=== PATIENT | female | born 1995 | race Caucasian/White ===

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

== ENCOUNTER 2017-06-06 22:56 | Emergency (ER) | payer OTHER ==
[~2017-06-06] VITALS: Ht 162.6 cm; Wt 84.4 kg
[2017-06-07 01:07] VITALS: BP 134/80
== END 2017-06-07 01:07 | disposition home or self-care (01) ==
LOC: ED 22:56
DX: S93.402A Sprain of unspecified ligament of left ankle, initial encounter (principal); X58.XXXA Exposure to other specified factors, initial encounter; Y93.89 Activity, other specified; Y92.89 Other specified places as the place of occurrence of the external cause; Y99.8 Other external cause status

== ENCOUNTER 2017-08-30 22:36 | Emergency (ER) | payer OTHER ==
[~2017-08-30] VITALS: Ht 162.6 cm; Wt 88.0 kg
[2017-08-30 22:42] VITALS: Ht 162.6 cm; Wt 88.0 kg
[2017-08-31 01:27] LABS: microscopic required? YES; urine erythrocyte NEGATIVE (NEGATIVE)
[2017-08-31 03:54] VITALS: BP 114/74
== END 2017-08-31 03:54 | disposition home or self-care (01) ==
LOC: ED 22:36
PROVIDERS: Emergency Medicine
DX: N39.0 Urinary tract infection, site not specified (principal)
CPT/HCPCS: 87491; 87591; J0696; J1885; J2001; Q0162

== ENCOUNTER 2018-02-25 21:48 | Emergency (ER) | payer OTHER ==
[~2018-02-25] VITALS: Ht 162.6 cm; Wt 87.1 kg
[2018-02-25 21:58] VITALS: Ht 162.6 cm; Wt 87.1 kg
[2018-02-25 22:49] LABS: UA SPECIFIC GRAVITY 1.015 (1.005-1.035); microscopic required? YES; urine erythrocyte NEGATIVE (NEGATIVE)
[2018-02-25 22:52] LABS: BASOPHIL % 0.3 % (0-2); PLATELET COUNT 337 x10^3mcL (130-400); RED CELL DISTRIBUTION WIDTH 13.3 % (11.5-14.5)
[2018-02-25 22:58] LABS: CALCIUM 8.6 mg/dL (8.5-10.1); CARBON DIOXIDE 22.8 mmol/L (21-32); CHLORIDE SERUM 106 mmol/L (98-107); CREATININE SERUM 0.5 mg/dL (0.6-1.0); GFR1 > 60 mL/min; GLUCOSE SERUM 85 mg/dL (74-106); POTASSIUM SERUM 3.5 mmol/L (3.5-5.1); SODIUM SERUM 142 mmol/L (136-145)
[2018-02-25 23:03] LABS: ALBUMIN 3.7 g/dL (3.4-5.0); ALKALINE PHOSPHATASE 78 U/L (46-116); ALT/SGPT 37 U/L (14-59); AST/SGOT 21 U/L (15-37); BILIRUBIN TOTAL 0.46 mg/dL (0.20-1.00); TOTAL PROTEIN, SERUM 8.1 g/dL (6.4-8.2)
[2018-02-26 00:34] VITALS: BP 115/71
== END 2018-02-26 00:35 | disposition home or self-care (01) ==
LOC: ED 21:48
PROVIDERS: Emergency Medicine
DX: O23.41 Unspecified infection of urinary tract in pregnancy, first trimester (principal); O21.9 Vomiting of pregnancy, unspecified; Z3A.01 Less than 8 weeks gestation of pregnancy
CPT/HCPCS: 36415; Q0162

== ENCOUNTER 2018-02-27 17:08 | Emergency (ER) | payer OTHER ==
[~2018-02-27] VITALS: Ht 162.6 cm; Wt 86.2 kg
[2018-02-27 17:22] VITALS: Ht 162.6 cm; Wt 86.2 kg
[2018-02-27 20:10] LABS: CALCIUM 8.8 mg/dL (8.5-10.1); CARBON DIOXIDE 20.6 mmol/L (21-32); CHLORIDE SERUM 98 mmol/L (98-107); CREATININE SERUM 0.5 mg/dL (0.6-1.0); GFR1 > 60 mL/min; GLUCOSE SERUM 80 mg/dL (74-106); POTASSIUM SERUM 3.4 mmol/L (3.5-5.1); SODIUM SERUM 135 mmol/L (136-145)
[2018-02-27 21:08] VITALS: BP 121/73
== END 2018-02-27 21:08 | disposition home or self-care (01) ==
LOC: ED 17:08
PROVIDERS: Emergency Medicine
DX: O21.9 Vomiting of pregnancy, unspecified (principal); R10.13 Epigastric pain; Z3A.01 Less than 8 weeks gestation of pregnancy
CPT/HCPCS: J2405; J7030

== ENCOUNTER 2018-06-25 16:05 | Emergency (ER) | payer OTHER ==
[~2018-06-25] VITALS: Ht 162.6 cm; Wt 86.2 kg
[2018-06-25 16:18] VITALS: BP 122/71; Ht 162.6 cm; Wt 86.2 kg
== END 2018-06-25 17:45 | disposition home or self-care (01) ==
LOC: ED 16:05
DX: M75.91 Shoulder lesion, unspecified, right shoulder (principal); Z98.890 Other specified postprocedural states

== ENCOUNTER 2019-01-24 14:08 | Emergency (ER) | payer SELFPAY ==
[~2019-01-24] VITALS: Ht 162.6 cm; Wt 87.5 kg
[2019-01-24 14:17] VITALS: Ht 162.6 cm; Wt 87.5 kg
[2019-01-24 17:10] VITALS: BP 105/62
== END 2019-01-24 17:10 | disposition home or self-care (01) ==
LOC: ED 14:08
DX: K08.89 Other specified disorders of teeth and supporting structures (principal); Z98.890 Other specified postprocedural states
CPT/HCPCS: J0696; J2270; Q0162

== ENCOUNTER 2019-06-09 16:49 | Emergency (ER) | payer OTHER ==
[~2019-06-09] VITALS: Ht 162.6 cm; Wt 86.6 kg
[2019-06-09 17:51] VITALS: Ht 162.6 cm; Wt 86.6 kg
[2019-06-09 21:57] VITALS: BP 133/77
== END 2019-06-09 21:27 | disposition home or self-care (01) ==
LOC: ED 16:49
DX: M54.5 Low back pain (principal); Z98.890 Other specified postprocedural states
CPT/HCPCS: J1885